=== PATIENT | female | born 1995 | race Caucasian/White ===

== ENCOUNTER 2022-04-09 06:21 | Day surgery (SDC) | payer MEDICAID ==
[2022-04-09] MEDS ORDERED: ceFAZolin 1 GM in Premix Bag 1 BAG IV ONE (06:47)
[2022-04-09] MEDS ORDERED: Nozin Nasal Sanitizer NASBOTH ONE (07:00)
[2022-04-09] MEDS ORDERED: Lactated Ringers 1,000 ML IV SCH (07:00)
[2022-04-09 07:04] LABS: ESTIMATED GFR 105 mL/min (>60)
[2022-04-09] MEDS: Bupivacaine 0.5% 30 ML SDV ONE ×2 (07:15→08:17)
[2022-04-09] MEDS ORDERED: fentaNYL 100 MCG/2 ML SDV ONE (07:41)
[2022-04-09] MEDS ORDERED: Propofol 200 MG/20 ML SDV ONE ×2 (07:42→08:28)
[2022-04-09] MEDS ORDERED: Lidocaine 0.5% 50 ML SDV ONE (07:42)
[2022-04-09] MEDS ORDERED: Midazolam 1 MG/ML 2 ML SDV ONE (07:42)
== END 2022-04-09 09:32 | disposition home or self-care (01) ==
LOC: JP.SDS 06:21
PROVIDERS: ATTEND Specialist
DX: G56.01 Carpal tunnel syndrome, right upper limb (principal); F32.A Depression, unspecified; E66.9 Obesity, unspecified; F17.200 Nicotine dependence, unspecified, uncomplicated; Z88.1 Allergy status to other antibiotic agents; Z88.8 Allergy status to other drugs, medicaments and biological substances; Z79.899 Other long term (current) drug therapy
CPT/HCPCS: 36415; 64721; 80053; 84703; 85027; A9270; J0690; J2250; J2704; J3010; J3490; J7120